=== PATIENT | male | born 1995 | race Hispanic/Latino ===

== ENCOUNTER 2022-06-24 20:43 | Emergency (ER) | payer SELFPAY ==
[2022-06-24] MEDS ORDERED: Fluorescein Opthalmic Strip ONE (21:44)
[2022-06-24] MEDS ORDERED: Proparacaine 0.5% Opth 15 ML BOT ONE (21:46)
== END 2022-06-24 23:00 | disposition home or self-care (01) ==
LOC: ERS 20:43
DX: T15.02XA Foreign body in cornea, left eye, initial encounter (principal); W22.8XXA Striking against or struck by other objects, initial encounter
CPT/HCPCS: 99283